=== PATIENT | female | born 1990 | race American Indian/Alaskan Native ===

== ENCOUNTER 2016-05-12 02:04 | Emergency (ER) | payer OTHER ==
[2016-05-12 02:25] VITALS: BP 137/106
[2016-05-12 02:46] LABS: Bilirubin,Urine NEG (Negative); Blood,Urine NEG (Negative); Ketones,Urine 80 mg/dL (Negative); Leukocyte Esterase,Urine NEG (Negative); Mucus,Urine FEW /HPF; Nitrite,Urine NEG (Negative); Protein,Urine <15 mg/dL mg/dL (Negative); Urobilinogen,Urine < 2.0 mg/dL (<2.0); WBC,Urine < 1.0 /HPF (0.0-6.0)
[2016-05-12 03:30] LABS: Basophils % (Auto) 0.5 % (0.0-1.8); Eosinophils % (Auto) 0.5 % (0.0-4.3); Hematocrit 40.9 % (30.3-42.9); Hemoglobin 12.9 gm/dl (10.1-14.3); Mean Corpuscular HGB Conc 31 % (30-34); Mean Corpuscular Volume 74 fl (79-97); Platelet Count 147 K/mm3 (140-440); Red Blood Count 5.55 M/mm3 (3.65-5.03); Red Cell Distribution Width 14.4 % (13.2-15.2); White Blood Count 6.2 K/mm3 (4.5-11.0)
[2016-05-12 03:33] LABS: Mean Corpuscular Hemoglobin 23 pg (28-32)
[2016-05-12 03:36] LABS: Anion Gap 26 mmol/L; BUN/Creatinine Ratio 8.75; Blood Urea Nitrogen 7 mg/dL (7-17); Calcium 9.2 mg/dL (8.4-10.2); Carbon Dioxide 18 mmol/L (22-30); Potassium 4.8 mmol/L (3.6-5.0); Sodium 129 mmol/L (137-145)
[2016-05-12 03:40] LABS: Glucose 598 mg/dL (65-100)
--- NOTE | 2016-05-13 00:49 | ED Elopement Review ---
ED Pt Elopement review - Results review Lab results: Laboratory Tests 05/12/16 05/12/16 05/12/16 02:22 02:30 03:09 WBC 6.2 RBC 5.55 H Hgb 12.9 Hct 40.9 MCV 74 L MCH 23 L MCHC 31 RDW 14.4 Plt Count 147 Lymph % (Auto) 36.0 H [place] % (Auto) 8.2 H Eos % (Auto) 0.5 Baso % (Auto) 0.5 Lymph # 2.3 [place] # 0.5 Eos # 0.0 Baso # 0.0 Seg Neutrophils % 54.8 Seg Neutrophils # 3.4 VBG pH Sodium Potassium Chloride Carbon Dioxide Anion Gap BUN Creatinine Estimated GFR BUN/Creatinine Ratio Glucose POC Glucose > 500 H Calcium Urine Color Colorless Urine Turbidity Clear Urine pH 6.0 Ur Specific [place] 1.031 H Urine Protein <15 mg/dl Urine Glucose (UA) >=500 Urine Ketones 80 Urine Blood Neg Urine Nitrite Neg Urine Bilirubin Neg Urine Urobilinogen < 2.0 Ur Leukocyte Esterase Neg Urine WBC (Auto) < 1.0 Urine RBC (Auto) 1.0 U Epithel Cells (Auto) 1.0 Urine Mucus Few Ketones 05/12/16 05/12/16 03:09 03:09 WBC RBC Hgb Hct MCV MCH MCHC RDW Plt Count Lymph % (Auto) [place] % (Auto) Eos % (Auto) Baso % (Auto) Lymph # [place] # Eos # Baso # Seg Neutrophils % Seg Neutrophils # VBG pH 7.289 L Sodium 129 L Potassium 4.8 Chloride 90.0 L Carbon Dioxide 18 L Anion Gap 26 BUN 7 Creatinine 0.8 Estimated GFR > 60 BUN/Creatinine Ratio 8.75 Glucose 598 H* POC Glucose Calcium 9.2 Urine Color Urine Turbidity Urine pH Ur Specific [place] Urine Protein Urine Glucose (UA) Urine Ketones Urine Blood Urine Nitrite Urine Bilirubin Urine Urobilinogen Ur Leukocyte Esterase Urine WBC (Auto) Urine RBC (Auto) U Epithel Cells (Auto) Urine Mucus Ketones - Call Back decision Pt Call Back Decision: Call pt to return to ED [facility] ([place], needs treatment and likely admission)
[2016-05-15 07:40] LABS: B-Hydroxybutyrate 3.7 mmol/L (0.2 - 0.28)
== END 2016-05-12 03:15 | disposition left against medical advice (07) ==
LOC: ED 02:04
DX: R05 Cough (principal); R11.2 Nausea with vomiting, unspecified; Z53.21 Procedure and treatment not carried out due to patient leaving prior to being seen by health care provider
CPT/HCPCS: 36415; 80048; 81001; 82010; 82805; 82962; 85025